=== PATIENT | female | born 1995 | race Caucasian/White ===

== ENCOUNTER 2018-10-19 12:22 | Emergency (ER) | payer MEDICAID ==
[2018-10-19] MEDS: predniSONE 20 MG TAB PO (14:23)
[2018-10-19] MEDS: IPRATROPIUM (NEB) 0.5 MG/2.5 ML AMP NEB (14:51)
[2018-10-19] MEDS: ALBUTEROL 0.083% (NEB) 2.5 MG/3 ML AMP NEB (14:51)
== END 2018-10-19 16:09 | disposition home or self-care (01) ==
LOC: FTE 12:22
DX: J45.901 Unspecified asthma with (acute) exacerbation (principal)
CPT/HCPCS: 71046; 94664; 99283-25